=== PATIENT | female | born 1995 | race Caucasian/White ===

== ENCOUNTER 2017-10-25 15:11 | Emergency (ER) | payer MEDICAID ==
[~2017-10-25] VITALS: Ht 165.1 cm; Wt 131.0 kg
[~2017-10-25 15:11] MED LIST: IMOD2TAB PO; MEDR10 PO; NAPR550 PO; NYST100010 TOP; ZOFR4TAB3 SL
[2017-10-25 15:18] VITALS: BP 147/70; PULSE 99; RESP 16; TEMP 98.9; O2SAT 100
[2017-10-25 15:44] LABS: BILIRUBIN, URINE NEG (NEG); BLOOD, URINE NEG (NEG); GLUCOSE,URINE NEG (NEG); KETONE, URINE 15 mg/dL (NEG); NITRITE,URINE NEG (NEG); PH, URINE 5.5 (5.0-8.5); URINE COLOR YELLOW (YELLW/STRAW); URINE LEUKOCYTE ESTERASE NEG (NEG)
[2017-10-25] MEDS ORDERED: ACETAMINOPHEN 325 MG TAB PO ONE (15:45)
[2017-10-25] MEDS ORDERED: SODIUM CHLOR 0.9% 1000 ML INJ 1,000 ML IV ONE (15:45)
[2017-10-25 15:49] LABS: BACTERIA, URINE OCC /hpf; SQUAMOUS EPITHELIAL CELL URINE > 8 /hpf (0-5); WBC, URINE 0-2 /hpf (0-5)
[2017-10-25 16:04] LABS: AUTOMATED NEUTROPHIL # 6.1 TH/MM3 (1.8-7.7); BASOPHIL # 0.3 TH/MM3 (0-0.2); BASOPHIL % 2.8 % (0.0-2.0); EOSINOPHIL % 0.4 % (0.0-4.0); HEMATOCRIT 38.3 % (35.0-46.0); HEMOGLOBIN 12.7 GM/DL (11.6-15.3); LYMPH % 29.9 % (9.0-44.0); MEAN CELL VOLUME 74.6 FL (80.0-100.0); MEAN CORPUSCULAR HEMOGLOBIN 24.6 PG (27.0-34.0); MEAN PLATELET VOLUME 8.6 FL (7.0-11.0); MONO % 5.2 % (0.0-8.0); MONOCYTE # 0.5 TH/MM3 (0-0.9); NEUT % 61.7 % (16.0-70.0); PLATELET COUNT 295 TH/MM3 (150-450); RED BLOOD COUNT 5.14 MIL/MM3 (4.00-5.30); RED CELL DISTRIBUTION WIDTH 16.1 % (11.6-17.2); WHITE BLOOD COUNT 9.9 TH/MM3 (4.0-11.0)
[2017-10-25 16:12] LABS: CHLORIDE 109 MEQ/L (98-107); SODIUM (NA) 138 MEQ/L (136-145)
[2017-10-25 16:15] LABS: CALCIUM 8.7 MG/DL (8.5-10.1)
[2017-10-25 16:16] LABS: ALBUMIN 3.6 GM/DL (3.4-5.0); BICARBONATE 22.2 MEQ/L (21.0-32.0); BLOOD UREA NITROGEN 6 MG/DL (7-18); GLUCOSE,RANDOM 90 MG/DL (74-106)
[2017-10-25 16:19] LABS: ALT (GPT) 43 U/L (10-53); AST (GOT) 24 U/L (15-37); CREATININE 0.75 MG/DL (0.50-1.00); GLOMERULAR FILTRATION RATE 96 ML/MIN (>89)
[2017-10-25 16:20] LABS: TOTAL BILIRUBIN ADULT 0.6 MG/DL (0.2-1.0); TOTAL PROTEIN 8.3 GM/DL (6.4-8.2)
[2017-10-25 16:22] LABS: ALKALINE PHOSPHATASE 54 U/L (45-117)
--- NOTE | 2017-10-25 17:04 | PD ---
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 She says this started last night and she felt "like her uterus was falling out." She denies any discharge. She denies any pain with urination, frequency or urgency. She has had occasional nausea. She denies any vomiting or any fevers. She tried taking Midol and Ibuprofen without relief of her symptoms. Severity is mild to moderate. PFSH Past Medical History Medical History: Denies Significant Hx Diminished Hearing: No Immunizations Current: Yes Influenza Vaccination: No ?: LMP: 08/20/17 IRREG : 0 Past Surgical History Tonsillectomy: Yes Tympanostomy Tube: Yes Social History Alcohol Use: No Tobacco Use: No Substance Use: No Allergies-Medications (Allergen,Severity, Reaction): Coded Allergies: No Known Allergies (Unverified Adverse Reaction, Unknown, 10/25/17) Reported Meds & Prescriptions Reported Meds & Active Scripts Active No Active Prescriptions or Reported Medications Review of Systems Except as stated in HPI: all other systems reviewed are Neg General / Constitutional: No: Fever, Chills HENT: No: Headaches, Lightheadedness Cardiovascular: No: Chest Pain or Discomfort Respiratory: No: Shortness of Breath Gastrointestinal: Positive: Nausea, Abdominal Pain, No: Vomiting Genitourinary: No: Urgency, Frequency, Dysuria, Discharge Skin: No Rash, No Change in Pigmentation Neurologic: No: Weakness, Dizziness Physical Exam Narrative GENERAL: Awake and alert, in no acute distress. SKIN: Focused skin assessment warm/dry. No wounds or signs of infection. HEAD: Atraumatic. Normocephalic. EYES: Pupils equal and round. No scleral icterus. ENT: Mucous membranes pink and moist. NECK: Trachea midline. No JVD. CARDIOVASCULAR: Regular rate and rhythm. No murmur appreciated. RESPIRATORY: No accessory muscle use. Clear to auscultation. Breath sounds equal bilaterally. GASTROINTESTINAL: Abdomen soft, non-tender, nondistended. : Exam performed in the presence of a nurse. Os is closed. No discharge. No CMT. MUSCULOSKELETAL: No obvious deformities. No clubbing. No cyanosis. No edema. NEUROLOGICAL: Awake and alert. No obvious cranial nerve deficits. Motor grossly within normal limits. Normal speech. PSYCHIATRIC: Appropriate mood and affect; insight and judgment normal. Data Data Last Documented VS Vital Signs Date Time Temp Pulse Resp B/P (MAP) Pulse Ox O2 Delivery O2 Flow Rate FiO2 10/25/17 17:18 93 16 135/71 (92) 98 Room Air 10/25/17 15:18 98.9 Orders Orders Urinalysis - C+S If Indicated (10/25/17 15:21) Ed Urine Pregnancytest Poc (10/25/17 15:21) Iv Access Insert/Monitor (10/25/17 15:35) Complete Blood Count With Diff (10/25/17 15:35) Comprehensive Metabolic Panel (10/25/17 15:35) Beta Hcg (Quant/Titer) (10/25/17 15:35) Type And Screen (10/25/17 15:35) Wet Prep Profile (10/25/17 15:35) Gc And Chlamydia Pcr (10/25/17 15:35) Sodium Chlor 0.9% 1000 Ml Inj (Ns 1000 M (10/25/17 15:45) Acetaminophen (Tylenol) (10/25/17 15:45) Us Pelvis (Ques Pr/Ect)W Trans (10/25/17 ) Labs Laboratory Tests Test 10/25/17 15:25 10/25/17 15:45 10/25/17 15:55 Urine Collection Type CLEAN CATCH Urine Color YELLOW Urine Turbidity CLEAR Urine pH 5.5 Urine Specific [place] GREATER/EQUAL 1.030 Urine Protein NEG mg/dL Urine Glucose (UA) NEG mg/dL Urine Ketones 15 mg/dL Urine Occult Blood NEG Urine Nitrite NEG Urine Bilirubin NEG Urine Urobilinogen 1.0 MG/DL Urine Leukocyte Esterase NEG Urine WBC 0-2 /hpf Urine Squamous Epithelial Cells > 8 /hpf Urine Bacteria OCC /hpf Microscopic Urinalysis Comment CULT NOT INDICATED Urine Collection Time 15:25 Clue Cells (Wet Prep) NONE SEEN Vaginal Trichomonas (Wet Prep) NONE SEEN Vaginal Yeast (Wet Prep) NONE SEEN White Blood Count 9.9 TH/MM3 Red Blood Count 5.14 MIL/MM3 Hemoglobin 12.7 GM/DL Hematocrit 38.3 % Mean Corpuscular Volume 74.6 FL Mean Corpuscular Hemoglobin 24.6 PG Mean Corpuscular Hemoglobin Concent 33.0 % Red Cell Distribution Width 16.1 % Platelet Count 295 TH/MM3 Mean Platelet Volume 8.6 FL Neutrophils (%) (Auto) 61.7 % Lymphocytes (%) (Auto) 29.9 % Monocytes (%) (Auto) 5.2 % Eosinophils (%) (Auto) 0.4 % Basophils (%) (Auto) 2.8 % Neutrophils # (Auto) 6.1 TH/MM3 Lymphocytes # (Auto) 3.0 TH/MM3 Monocytes # (Auto) 0.5 TH/MM3 Eosinophils # (Auto) 0.0 TH/MM3 Basophils # (Auto) 0.3 TH/MM3 CBC Comment AUTO DIFF Differential Comment AUTO DIFF CONFIRMED Blood Urea Nitrogen 6 MG/DL Creatinine 0.75 MG/DL Random Glucose 90 MG/DL Total Protein 8.3 GM/DL Albumin 3.6 GM/DL Calcium Level 8.7 MG/DL Alkaline Phosphatase 54 U/L Aspartate Amino Transf (AST/SGOT) 24 U/L Alanine Aminotransferase (ALT/SGPT) 43 U/L Total Bilirubin 0.6 MG/DL Sodium Level 138 MEQ/L Potassium Level 3.6 MEQ/L Chloride Level 109 MEQ/L Carbon Dioxide Level 22.2 MEQ/L Anion Gap 7 MEQ/L Estimat Glomerular Filtration Rate 96 ML/MIN Human Chorionic Gonadotropin, Quant 674 MIU/ML [facility] Medical Decision Making Medical Screen Exam Complete: Yes Emergency Medical Condition: Yes Medical Record Reviewed: Yes Differential Diagnosis UTI versus versus ectopic versus BV Narrative Course Patient is a 21-year-old female comes in complaining of lower abdominal cramping. Exam shows office is closed, no acute abnormalities. IV established , labs sent. Urine test is positive. Beta hCG is 674. Ultrasound performed shows a cystic lesion in the lower portion of the uterus, could be benign versus impending . Last 24 hours Impressions Pelvis Ultrasound 10/25/17 0000 Signed Impressions: Service Date/Time: Wednesday, October 25, 2017 16:56 - CONCLUSION: 1. No intrauterine seen at this time. 2. Cystic area in the lower uterine segment measuring 4 x 6 x 4 mm could be an impending versus other benign etiology. 3. Close interval followup recommended with serial beta hCGs. Les Moses MD Patient advised of the results. She is advised to return in 2 days for repeat testing. Advised return anytime for any worsening symptoms. She is comfortable with discharge at this time. Diagnosis Primary Impression: Qualified Codes: Z3A.01 - Less than 8 weeks gestation of Additional Impression: Abdominal cramping affecting Patient Instructions: Abdominal Pain in (ED), General Instructions Additional Instructions: Follow-up in 2 days for repeat testing. Your beta hCG was 674 today. Return anytime for any worsening symptoms. Drink plenty of fluids. Take Tylenol as needed for pain. Scripts No Active Prescriptions or Reported Meds Disposition: 01 DISCHARGE HOME Condition: Stable Faye Haines MD October 25, 2017 17:04
[2017-10-25 17:18] VITALS: BP 135/71; PULSE 93; RESP 16; O2SAT 98
--- NOTE | 2017-10-25 17:30 | RADRPT ---
EXAM DATE/TIME: 10/25/2017 16:56 [facility] COMPARISON: No previous studies available for comparison. INDICATIONS : Pelvic cramping. Irregular periods. LAB(S): Beta-hC MEDICAL HISTORY : . SURGICAL HISTORY : Tonsillectomy. Tympanostomy tubes. ENCOUNTER: Initial ACUITY: 2 days PAIN SCORE: 8/10 LOCATION: Bilateral pelvis MEASUREMENTS: LEFT OVARY: 3.0 x 2.6 x 2.6 cm UTERUS: 9.4 x 7.3 x 5.3 cm ENDOMETRIAL STRIPE: >20 mm RIGHT OVARY: 1.8 x 2.3 x 2.0 cm FREE FLUID: No FINDINGS: UTERUS: The myometrium has homogeneous echotexture without mass. Cystic area in the lower uterine segment me asures 4 x 6 x 9 mm could be nabothian cysts or impending . Ectopic not seen. RIGHT OVARY: Ovary contains no mass or significant cystic lesion. LEFT OVARY: Ovary contains no mass or significant cystic lesion. MISCELLANEOUS: No free fluid. CONCLUSION: 1. No intrauterine seen at this time. 2. Cystic area in the lower uterine segment measuring 4 x 6 x 4 mm could be an impending rukhsana connie other benign etiology. 3. Close interval followup recommended with serial beta hCGs. Les Moses MD on October 25, 2017 at 17:24 Board Certified Radiologist. This report was verified electronically.
== END 2017-10-25 18:09 | disposition home or self-care (01) ==
LOC: PHED 15:11
DX: O26.891 Other specified pregnancy related conditions, first trimester (principal); R10.9 Unspecified abdominal pain; Z3A.08 8 weeks gestation of pregnancy
CPT/HCPCS: 76700; 76817; 80053; 81001; 84702; 84703; 85025; 86850; 86900; 86901; 87210; 87491; 87591; 96360; 99284; J7030

== ENCOUNTER 2017-10-27 17:45 | Emergency (ER) | payer MEDICAID ==
[~2017-10-27] VITALS: Ht 165.1 cm; Wt 132.6 kg
[2017-10-27 17:47] VITALS: BP 130/69; PULSE 97; RESP 18; TEMP 97.7; O2SAT 100
--- NOTE | 2017-10-27 18:11 | PD ---
HPI Chief Complaint: Related Problem Time Seen by Provider: 18:02 Travel History International Travel<30 days: No Contact w/Intl Traveler<30days: No Traveled to known affect area: No History of Present Illness HPI 21-year-old female presents emergency department at the request of the emergency physician she was evaluated by 2 days ago. Says that she came in for lower pelvic cramping and found that she was . She was advised to return for repeat lab value. At this time, patient says that she has minimal cramping, no vaginal bleeding or discharge. Says that she was able to hydrate over the weekend which she believes is likely the reason she feels better. She has no other concerns or complaints today. PFSH Past Medical History Diminished Hearing: No Immunizations Current: Yes Tetanus Vaccination: > 5 Years Influenza Vaccination: No ?: LMP: AUGUST 20 : 0 Past Surgical History Tonsillectomy: Yes Tympanostomy Tube: Yes Social History Alcohol Use: No Tobacco Use: No Substance Use: No Allergies-Medications (Allergen,Severity, Reaction): Coded Allergies: No Known Allergies (Verified Adverse Reaction, Unknown, 10/27/17) Reported Meds & Prescriptions Reported Meds & Active Scripts Active No Active Prescriptions or Reported Medications Review of Systems Except as stated in HPI: all other systems reviewed are Neg Physical Exam Narrative GENERAL: Well developed, well-nourished no apparent distress SKIN: Warm and dry. HEAD: Atraumatic. Normocephalic. EYES: Pupils equal and round. No scleral icterus. No injection or drainage. ENT: No nasal bleeding or discharge. Mucous membranes pink and moist. NECK: Trachea midline. No JVD. CARDIOVASCULAR: Regular rate and rhythm. RESPIRATORY: No accessory muscle use. Clear to auscultation. Breath sounds equal bilaterally. GASTROINTESTINAL: Abdomen soft, non-tender, nondistended. Hepatic and splenic margins not palpable. No CVA tenderness MUSCULOSKELETAL: Extremities without clubbing, cyanosis, or edema. No obvious deformities. NEUROLOGICAL: Awake and alert. No obvious cranial nerve deficits. Motor grossly within normal limits. Five out of 5 muscle strength in the arms and legs. Normal speech. PSYCHIATRIC: Appropriate mood and affect; insight and judgment normal. Data Data Last Documented VS Vital Signs Date Time Temp Pulse Resp B/P (MAP) Pulse Ox O2 Delivery O2 Flow Rate FiO2 5/21/18 21:15 82 16 128/90 (103) 100 10/27/17 17:47 97.7 Orders Orders Beta Hcg (Quant/Titer) (10/27/17 18:06) Us Pelvis (Ques Pr/Ect)W Trans (10/27/17 ) Mandatory Outpatient Referral (10/27/17 21:00) Ed Discharge Order (10/27/17 21:01) Labs Laboratory Tests Test 10/27/17 18:15 Human Chorionic Gonadotropin, Quant 1518 MIU/ML MDM Medical Decision Making Medical Screen Exam Complete: Yes Emergency Medical Condition: Yes Differential Diagnosis status, spontaneous , incomplete Narrative Course 21-year-old female presents emergency department at the request of the emergency physician she was evaluated by 2 days ago. Says that she came in for lower pelvic cramping and found that she was . She was advised to return for repeat lab value. At this time, patient says that she has minimal cramping, no vaginal bleeding or discharge. Says that she was able to hydrate over the weekend which she believes is likely the reason she feels better. She has no other concerns or complaints today. Vital signs are stable. Physical exam findings unremarkable. No abdominal tenderness to palpation. Beta-hCG quantitative is 1518. I discussed this with my attending who recommended a pelvic ultrasound. Last Impressions Pelvis Ultrasound 10/27/17 0000 Signed Impressions: Service Date/Time: Friday, October 27, 2017 19:44 - CONCLUSION: 1. No discrete gestational sac currently visualized. This may simply relate to the early gestational age which is below the threshold for detection with ultrasound. 2. Small simple nabothian consists are stable from the prior study performed 2 days ago. 3. 17 mm simple cyst involving the left ovary. William Gavin Jr., MD Patient is advised to return in 2-3 days for recheck of beta-hCG. She should return sooner if she has pelvic pain or cramping as this may be concerning for an ectopic . She states understanding will comply. I placed a mandatory referral for her as she says she does not have insurance and may be concern of a developing ectopic. Diagnosis Primary Impression: Qualified Codes: Z3A.01 - Less than 8 weeks gestation of Referrals: Pie [facility]utter Additional Instructions: Follow-up with an hat band attacher within 1-2 weeks. Continue hydrating to reduce her symptoms. I recommend taking Tylenol for any cramping. Return in 48-72 hours for repeat of your lab, sooner if your pain returns or worsens. Scripts No Active Prescriptions or Reported Meds Disposition: 01 DISCHARGE HOME Condition: Stable Mireya Hankins October 27, 2017 18:11
[2017-10-27 20:15] VITALS: BP 128/90
--- NOTE | 2017-10-27 20:41 | RADRPT ---
EXAM DATE/TIME: 10/27/2017 19:44 [facility] COMPARISON: US PELVIS (QUEST PREG/ECTOPIC) W/TRANSVAG, October 25, 2017, 16:56. INDICATIONS : Follow up ultrasound from 10/25/17. LAB(S): Beta-hC,518 MEDICAL HISTORY : . SURGICAL HISTORY : Tonsillectomy. ENCOUNTER: Subsequent ACUITY: 2 days PAIN SCORE: 0/10 LOCATION: Pelvis. MEASUREMENTS: UTERUS: 10.7 x 6.4 x 5.2 cm ENDOMETRIAL STRIPE: 19 mm RIGHT OVARY: 3.1 x 2.4 x 1.7 cm LEFT OVARY: 3.4 x 2.9 x 2.7 cm FREE FLUID: No CROWN RUMP LENGTH: Not visualized = WKS DAYS FHR: Not visualized BPM FINDINGS: UTERUS: A thickened endometrial stripe is observed. Tiny simple nabothian cysts are noted. No cystic lesion o r gestational sac clearly identified currently. RIGHT OVARY: Only visualized via the transabdominal route. Ovary contains no mass or significant cystic lesion. LEFT OVARY: Only visualized via the transabdominal route. A 17 mm simple cyst is seen associated with left ovary. MISCELLANEOUS: No free fluid. CONCLUSION: 1. No discrete gestational sac currently visualized. This may simply relate to the early gestational age which is below the threshold for detection with ultrasound. 2. Small simple nabothian consists are stable from the prior study performed 2 days ago. 3. 17 mm simple cyst involving the left ovary. William Gavin Jr., MD on October 27, 2017 at 20:34 Board Certified Radiologist. This report was verified electronically.
[2017-10-27 21:15] VITALS: BP 128/90
== END 2017-10-27 21:18 | disposition home or self-care (01) ==
LOC: PHED 17:45
DX: O26.891 Other specified pregnancy related conditions, first trimester (principal); Z3A.00 Weeks of gestation of pregnancy not specified
CPT/HCPCS: 76700; 76817; 84702; 99284

== ENCOUNTER 2017-10-31 17:44 | Emergency (ER) | payer MEDICAID ==
[~2017-10-31] VITALS: Ht 165.1 cm; Wt 132.0 kg
[2017-10-31 17:50] VITALS: BP 127/94; PULSE 100; RESP 18; TEMP 98.4; O2SAT 98
--- NOTE | 2017-10-31 18:12 | PD ---
HPI Chief Complaint: Related Problem Time Seen by Provider: 18:04 Travel History International Travel<30 days: No Contact w/Intl Traveler<30days: No Traveled to known affect area: No History of Present Illness HPI Patient presents to the emergency department for repeat beta hCG. She had abdominal cramping and came to the ER on Friday and told that she was . She was told to return on Friday for repeat beta to be sure that it was increasing. She also had ultrasound done on Friday and on Friday with no identifiable IUP noted.. She was told to come back today to be sure that her beta hCG was increasing. She denies fever, chills, vomiting, abdominal pain, vaginal discharge, vaginal bleeding. 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 And this is her first . [facility] Past Medical History Diminished Hearing: No Immunizations Current: Yes Influenza Vaccination: No ?: LMP: AUGUST 20, 2017 : 0 Past Surgical History Tonsillectomy: Yes Tympanostomy Tube: Yes Social History Alcohol Use: No Tobacco Use: No Substance Use: No Allergies-Medications (Allergen,Severity, Reaction): Coded Allergies: No Known Allergies (Verified Adverse Reaction, Unknown, 10/31/17) Reported Meds & Prescriptions Reported Meds & Active Scripts Active No Active Prescriptions or Reported Medications Review of Systems Except as stated in HPI: all other systems reviewed are Neg Physical Exam Narrative GENERAL: No acute distress. SKIN: Focused skin assessment warm/dry. HEAD: Atraumatic. Normocephalic. EYES: Pupils equal and round. No scleral icterus. No injection or drainage. ENT: No nasal bleeding or discharge. Mucous membranes pink and moist. NECK: Trachea midline. No JVD. CARDIOVASCULAR: Regular rate and rhythm. No murmur appreciated. RESPIRATORY: No accessory muscle use. Clear to auscultation. Breath sounds equal bilaterally. GASTROINTESTINAL: Abdomen soft, non-tender, obese. Hepatic and splenic margins not palpable. MUSCULOSKELETAL: No obvious deformities. No clubbing. No cyanosis. No edema. NEUROLOGICAL: Awake and alert. No obvious cranial nerve deficits. Motor grossly within normal limits. Normal speech. PSYCHIATRIC: Appropriate mood and affect; insight and judgment normal. Data Data Last Documented VS Vital Signs Date Time Temp Pulse Resp B/P (MAP) Pulse Ox O2 Delivery O2 Flow Rate FiO2 10/31/17 17:50 98.4 100 18 127/94 (105) 98 Orders Orders Beta Hcg (Quant/Titer) (10/31/17 18:09) Us Pelvis (Ques Pr/Ect)W Trans (10/31/17 ) Labs Laboratory Tests Test 10/31/17 18:20 Human Chorionic Gonadotropin, Quant 5553 MIU/ML MDM Medical Decision Making Medical Screen Exam Complete: Yes Emergency Medical Condition: Yes Interpretation(s) Labs: Beta HC U/S: MEASUREMENTS: Uterus:__10.3 x 7.1 x 5.6 Endometrial Stripe:__13 mm Right Ovary:__ 2.5 x 2.1 x 1.7 Left Ovary:__ 2.6 x 2.4 x 2.3 FINDINGS: A cystic areas seen in the fundal endometrium which measures 1.4 x 0.8 cm. Cannot identify a yolk sac or pole; cannot confirm that this represents a gestational sac. The ovaries have a homogeneous echotexture. No evidence of free fluid. CONCLUSION: 1. There is a cystic area in the fundal endometrium; no pole or yolk sac is seen despite a quantitative beta hCG in excess of 5000. Cannot confirm at this point. 2. No evidence of free fluid. Differential Diagnosis Normal IUP, ectopic , AB Narrative Course Patient presents to the emergency department for repeat serum beta hCG. She is afebrile with normal vital signs. Placed on a campus monitor, IV access obtained, and serum beta hCG sent. Beta hCG on Friday was 674, on Friday 1518. 2051: Discussed lab results with patient and advised of likely ectopic . Her vital signs are stable. She is agreeable with following up immediately at [facility]. She has no vaginal bleeding, abdominal pain, and vital signs are stable. She was given the option of transport via ambulance which she has declined. She is made aware of complications of ectopic and has advised that she will immediately go to [facility] for evaluation by OB hospitalist. Physician Communication Physician Communication 2029: Spoke to Dr. Mendoza, OB hospitalist. Advised to send patient to [facility] ER, he is to be called when she gets there, and he will evaluate her for possible methotrexate for ectopic. 2051: Spoke to Brina in [place] ER as charge nurse in a cardiac arrest. Advised her that Dr. Mendoza is to be called when patient arrives in ER. Diagnosis Primary Impression: Ectopic Qualified Codes: O00.90 - Unspecified ectopic without intrauterine Patient Instructions: Ectopic (ED), General Instructions Additional Instructions: 1. Follow-up at the main hospital in the ER immediately for evaluation by the OB hospitalist. Scripts No Active Prescriptions or Reported Meds Disposition: 01 DISCHARGE HOME (Followup immeiately at the [facility] in [place] in the ER for evaluation by OB hospitalist. ) Condition: Stable Antonette Strong MD October 31, 2017 18:12
[2017-10-31 20:35] VITALS: BP 118/96; PULSE 73; RESP 16; O2SAT 100
--- NOTE | 2017-10-31 20:36 | RADRPT ---
EXAM DATE: 10/31/2017 8:29 PM EDT AGE/SEX: 21 years / Female INDICATIONS: Pelvic pain. Quantitative beta hCG 5553. CLINICAL DATA: This is the patient's subsequent encounter. Patient reports that signs and symptoms h ave been present for 1 week and indicates a pain score of 1/10. MEDICAL/SURGICAL HISTORY: . Pelvic pain. Tonsillectomy. Tympanostomy tube. COMPARISON: [facility], US PELVIS (QUEST PREG/ECTOPIC) W/TRANSVAG, 10/27/2017. . MEASUREMENTS: Uterus:__10.3 x 7.1 x 5.6 Endometrial Stripe:__13 mm Right Ovary:__ 2.5 x 2.1 x 1.7 Left Ovary:__ 2.6 x 2.4 x 2.3 FINDINGS: A cystic areas seen in the fundal endometrium which measures 1.4 x 0.8 cm. Cannot identify a yolk sac or pole; cannot confirm that this represents a gestational sac. The ovaries have a homogeneous echotexture. No evidence of free fluid. CONCLUSION: 1. There is a cystic area in the fundal endometrium; no pole or yolk sac is seen despite a chad ntitative beta hCG in excess of 5000. Cannot confirm at this point. 2. No evidence of free fluid. Electronically signed by: William Miller MD 10/31/2017 8:35 PM EDT
--- NOTE | 2017-10-31 23:42 | PD.CONS ---
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 Patient initially seen on of this year and her quantitative hCG was 600 and ultrasound showing no intrauterine , repeat blood work and ultrasound on 10/27--quantitative hCG 1500 so it had doubled in 3 days but still nothing in the uterus on ultrasound. Today on 10/31 quantitative hCG is 5500 and on ultrasound we see a intrauterine sac structure that appears to be a gestational sac however no yolk sac or pole can be identified there is a positive "O" sign with hyperechoic tissue around the saccular structure in the very much resembles an intrauterine gestational sac. Patient is asymptomatic otherwise she has no pain no bleeding Exam-no cervical motion tenderness no blood in the vagina and cervix is closed uterus is difficult to palpate due to her size but is nontender and is no adnexal masses her size compromises that exam somewhat Impression /Plan -with today's ultrasound findings is highly likely this is an intrauterine and it certainly could be very early normal with the doubling numbers of her quant, however without seeing something inside the intrauterine sac it could certainly be a blighted ovum or an empty sac , and ectopic cannot be completely ruled out at this point as the saccular structure in the uterus possibly could be a pseudo-sac, therefore our plan needs to be for her to return in 3 days for another quantitative hCG and ultrasound, come in sooner she has a lot of pain and/or heavy bleeding Jimbo Mendoza II, MD October 31, 2017 23:42
== END 2017-10-31 21:05 | disposition home or self-care (01) ==
LOC: PHED 17:44
DX: O00.90 Unspecified ectopic pregnancy without intrauterine pregnancy (principal)
CPT/HCPCS: 76700; 76817; 84702; 99284

== ENCOUNTER 2017-10-31 21:28 | Emergency (ER) | payer MEDICAID ==
[2017-10-31 21:30] VITALS: BP 139/84; PULSE 108; RESP 18; TEMP 98.9; O2SAT 100
--- NOTE | 2017-10-31 22:01 | PD ---
HPI Chief Complaint: Related Problem Time Seen by Provider: 21:37 Travel History International Travel<30 days: No Contact w/Intl Traveler<30days: No Traveled to known affect area: No History of Present Illness HPI Patient is a 21-year-old female who her last menstrual period was August 20 she came to the ER on October 25 abdominal pain and she was found out that she was at that time her quant was 674 she returned 2 days later to repeat her quant and it was 1500 doubled since the today. Appearing with a normal today she went to [place] and they did an ultrasound that did not show an obvious intrauterine there was no obvious cystic structure on the ovaries however there was a abnormal cystic structure in the uterus but did not appear to be a viable they discharged her and told her she should follow-up immediately and so she comes to the [facility] to be seen by gynecology they told her that if that she did not accept transfer by ambulance that she could have a ruptured ectopic and that she should emergently come to the [facility] Past Medical History Medical History: Denies Significant Hx Diminished Hearing: No Immunizations Current: Yes ?: : 0 Past Surgical History Tonsillectomy: Yes Tympanostomy Tube: Yes Social History Alcohol Use: Yes Tobacco Use: No Substance Use: No Allergies-Medications (Allergen,Severity, Reaction): Coded Allergies: No Known Allergies (Verified Adverse Reaction, Unknown, 10/31/17) Reported Meds & Prescriptions Reported Meds & Active Scripts Active No Active Prescriptions or Reported Medications Review of Systems Except as stated in HPI: all other systems reviewed are Neg Physical Exam Narrative GENERAL: No apparent distress patient is not having any obvious bleeding no obvious abdominal pain does not appear toxic SKIN: Warm and dry. HEAD: Atraumatic. Normocephalic. EYES: Pupils equal and round. No scleral icterus. No injection or drainage. ENT: No nasal bleeding or discharge. Mucous membranes pink and moist. NECK: Trachea midline. No JVD. CARDIOVASCULAR: Regular rate and rhythm. RESPIRATORY: No accessory muscle use. Clear to auscultation. Breath sounds equal bilaterally. GASTROINTESTINAL: Abdomen patient is morbidly obese soft, non-tender, nondistended. Hepatic and splenic margins not palpable. MUSCULOSKELETAL: Extremities without clubbing, cyanosis, or edema. No obvious deformities. NEUROLOGICAL: Awake and alert. No obvious cranial nerve deficits. Motor grossly within normal limits. Five out of 5 muscle strength in the arms and legs. Normal speech. PSYCHIATRIC: Appropriate mood and affect; insight and judgment normal. Data Data Last Documented VS Vital Signs Date Time Temp Pulse Resp B/P (MAP) Pulse Ox O2 Delivery O2 Flow Rate FiO2 10/31/17 21:30 98.9 108 18 139/84 (102) 100 Orders Orders Ed Discharge Order (10/31/17 23:06) MDM Medical Decision Making Medical Screen Exam Complete: Yes Emergency Medical Condition: Yes Medical Record Reviewed: Yes (I reviewed her ultrasound that was done at [place] earlier today and her beta quant which is 5500) Differential Diagnosis Differential diagnosis includes early versus ectopic versus missed versus threatened versus demise versus molar Narrative Course Ultrasound done at [place] does not show any viable there is gestational sac there is no comment on whether there is any cystic structures on either of the ovaries or fallopian tubes or adnexa I spoke with Dr. Miller the radiologist of the detail of that the ovaries. they do not look like there is any complex cyst. I spoke with the EXHAUST MACHINE OPERATOR hospitalist who is going to come bedside to evaluate the patient for the possibility of an ectopic due to the fact that the beta quant is 5553 today with no obvious DR Ball is bedside recommends return [address] [facility] for repeat labs and US Diagnosis Primary Impression: Qualified Codes: Z34.90 - Encounter for supervision of normal , unspecified, unspecified trimester Additional Impression: Threatened Patient Instructions: Abdominal Pain in (ED), General Instructions, (DC) Scripts No Active Prescriptions or Reported Meds Naseem Reyes MD October 31, 2017 22:01
== END 2017-11-01 00:22 | disposition home or self-care (01) ==
LOC: NEPE 21:28
DX: O20.0 Threatened abortion (principal); Z3A.00 Weeks of gestation of pregnancy not specified
CPT/HCPCS: 99282

== ENCOUNTER 2017-11-03 11:03 | Emergency (ER) | payer MEDICAID ==
[~2017-11-03] VITALS: Ht 165.1 cm; Wt 120.0 kg
[2017-11-03 11:10] VITALS: BP 109/63; PULSE 89; RESP 16; TEMP 98.2; O2SAT 99
--- NOTE | 2017-11-03 13:02 | PD ---
HPI Chief Complaint: Related Problem Time Seen by Provider: 12:41 Travel History International Travel<30 days: No Contact w/Intl Traveler<30days: No Traveled to known affect area: No History of Present Illness HPI 21y female G0 presents to the emergency department at the request of Dr. Mendoza, OB, for a redraw of the quantitative hCG and pelvic ultrasound. She has no pain at this point. Denies any cramping or vaginal discharge. No fevers or chills. She otherwise feels well. LMP August 20, 2017. PFSH Past Medical History Diminished Hearing: No Immunizations Current: Yes ?: LMP: 08/20/17 : 0 Past Surgical History Tonsillectomy: Yes Tympanostomy Tube: Yes Social History Alcohol Use: Yes Tobacco Use: No Substance Use: No Allergies-Medications (Allergen,Severity, Reaction): Coded Allergies: No Known Allergies (Verified Adverse Reaction, Unknown, 11/03/17) Reported Meds & Prescriptions Reported Meds & Active Scripts Active No Active Prescriptions or Reported Medications Review of Systems Except as stated in HPI: all other systems reviewed are Neg Physical Exam Narrative GENERAL: Well-developed, WN NAD SKIN: Focused skin assessment warm/dry. HEAD: Atraumatic. Normocephalic. EYES: Pupils equal and round. No scleral icterus. No injection or drainage. ENT: No nasal bleeding or discharge. Mucous membranes pink and moist. NECK: Trachea midline. No JVD. CARDIOVASCULAR: Regular rate and rhythm. No murmur appreciated. RESPIRATORY: No accessory muscle use. Clear to auscultation. Breath sounds equal bilaterally. GASTROINTESTINAL: Abdomen soft, non-tender, nondistended. No CVAT MUSCULOSKELETAL: No obvious deformities. No clubbing. No cyanosis. No edema. NEUROLOGICAL: Awake and alert. No obvious cranial nerve deficits. Motor grossly within normal limits. Normal speech. PSYCHIATRIC: Appropriate mood and affect; insight and judgment normal. Data Data Last Documented VS Vital Signs Date Time Temp Pulse Resp B/P (MAP) Pulse Ox O2 Delivery O2 Flow Rate FiO2 11/03/17 16:26 11/03/17 15:21 89 18 100 Room Air 11/03/17 11:10 98.2 Orders Orders Beta Hcg (Quant/Titer) (11/03/17 12:43) Us Pelvis (Ques Pr/Ect)W Trans (11/03/17 ) Ed Discharge Order (11/03/17 16:16) Labs Laboratory Tests Test 11/03/17 13:00 Human Chorionic Gonadotropin, Quant [id number] MIU/ML [facility] Medical Decision Making Medical Screen Exam Complete: Yes Emergency Medical Condition: Yes Differential Diagnosis Ectopic , status, evaluation, vaginal bleeding Narrative Course 21y female presents to the emergency department at the request of Dr. Mendoza, OB, for a redraw of the quantitative hCG and pelvic ultrasound. She has no pain at this point. Denies any cramping or vaginal discharge. No fevers or chills. She otherwise feels well. Vital signs are stable. Obtain quantitative hCG and ultrasound. Quantitative hCG is increasing appropriately. Review the EMR shows that patient initially was in the emergency department October 25 and her quantitative hCG was 600. No IUP found on ultrasound. She has been followed over the last several days and found her hCG was 5500 October 31 with still an inconclusive ultrasound. Dr. Mendoza saw this patient in the ER October 31 and advised that she should return in 3 days for repeat quantitative hCG and ultrasound. Last Impressions Pelvis Ultrasound 11/03/17 0000 Signed Impressions: CONCLUSION: 1. Possible gestational sac versus pseudogestational sac. Serial beta hCG loraine mmended. 2. Nonvisualization of the ovaries. 3. Ectopic not seen but not excluded. I spoke with Dr. Carrillo, permit coordinator. She recommended patient follow-up with Dr. Moore as an outpatient within a couple of days. Advised that if she could not see Dr. Moore and that she should return to the emergency department for further evaluation. The patient remains pain-free without vaginal bleeding or discharge. I explained the instructions specifically to her and her boyfriend and they state understanding will comply. Diagnosis Primary Impression: Qualified Codes: Z3A.01 - Less than 8 weeks gestation of Referrals: Yariel Moore MD Additional Instructions: Follow-up with Dr. Romaine Li within 2-3 days. If you are unable to obtain an appointment with him, return to the emergency department for repeat labs and ultrasound Scripts No Active Prescriptions or Reported Meds Disposition: 01 DISCHARGE HOME Condition: Stable Mireya Hankins November 03, 2017 13:02
--- NOTE | 2017-11-03 14:35 | RADRPT ---
EXAM DATE: 11/03/2017 2:16 PM EDT AGE/SEX: 21 years / Female INDICATIONS: Follow up ultrasound. Pelvic pain. CLINICAL DATA: This is the patient's sequela encounter. Patient reports that signs and symptoms have been present for 1 week and indicates a pain score of 0/10. MEDICAL/SURGICAL HISTORY: . Tonsillectomy. Tympanostomy. COMPARISON: [facility], US PELVIS ([facility] PREG/ECTOPIC) W/TRANSVAG, 10/31/2017. . MEASUREMENTS: Uterus:__9.4 x 7.2 x 5.9 cm Endometrial Stripe:__6 mm Right Ovary:__ not seen Left Ovary:__ not seen FINDINGS: Uterus: Possible gestational sac identified in the endometrium. Questionable yolk sac. No definite c rown-rump length. Ectopic not seen but not excluded. No heart tones. Right Ovary: Not visualized. Left Ovary: Not visualized Other: No free fluid. CONCLUSION: 1. Possible gestational sac versus pseudogestational sac. Serial beta hCG recommended. 2. Nonvisualization of the ovaries. 3. Ectopic not seen but not excluded. Electronically signed by: Les Moses MD 11/03/2017 2:33 PM EDT
[2017-11-03 15:21] VITALS: BP 133/82; PULSE 89; RESP 18; O2SAT 100
== END 2017-11-03 16:31 | disposition home or self-care (01) ==
LOC: NEPD 11:03
DX: O26.891 Other specified pregnancy related conditions, first trimester (principal); Z3A.01 Less than 8 weeks gestation of pregnancy
CPT/HCPCS: 76700; 76817; 84702; 99284